=== PATIENT | male | born 1995 | race Caucasian/White ===

== ENCOUNTER 2022-02-04 08:13 | Emergency (ER) | payer OTHER ==
[~2022-02-04] VITALS: Ht 190.5 cm; Wt 99.8 kg
[2022-02-04 08:13] VITALS: BP_SYST 145
--- NOTE | 2022-02-04 08:13 | NUR ---
BROUGHT IN BY [facility] AND PLACED IN BED #8, TRIAGED, REPORT GIVEN TO CINDI
--- NOTE | 2022-02-04 08:16 | NUR ---
PT BIBA AWAKE AND ALERT AOX4, NO SOB OR DISTRESS. PT C/O PAIN FROM LACTERATION TO L WRIST AND R LOWER BACK. PT STATED HE GOT CUT FROM AN AUTOMATIC DOOR AT WORK TODAY AT 0715. THERE IS NO ACTIVE BLEEDING AT THE CURRENT TIME. PT DENIES HEAD TRAUMA AND FALL. PT STATES PAIN 6/10 AT CURRENT TIME.
--- NOTE | 2022-02-04 08:18 | NUR ---
MD DR BROWN AT BEDSIDE
[2022-02-04] MEDS ORDERED: LIDOCAINE 1% 10 MG/ML, 20 ML MDV INJ ONE (09:00)
[2022-02-04] MEDS ORDERED: BACITRACIN 1 GM OINT TP ONE (09:00)
--- NOTE | 2022-02-04 10:00 | NUR ---
MD DR BROWN AT BEDSIDE W/ LACERATION KIT
[2022-02-04 11:19] VITALS: BP_SYST 157
--- NOTE | 2022-02-04 11:21 | NUR ---
Patient given written and verbal discharge instructions and verbalizes understanding. ER MD DR GIRON discussed with patient the results and treatment provided. Patient in stable condition. ID arm band removed. Patient educated on pain management and to follow up with PMD. Pain Scale 4/10. Opportunity for questions provided and answered. Medication side effect fact sheet provided.
== END 2022-02-04 11:21 | disposition home or self-care (01) ==
LOC: SED 08:13
DX: S31.119A Laceration without foreign body of abdominal wall, unspecified quadrant without penetration into peritoneal cavity, initial encounter (principal); S61.512A Laceration without foreign body of left wrist, initial encounter; Z79.899 Other long term (current) drug therapy; W22.8XXA Striking against or struck by other objects, initial encounter; Y93.89 Activity, other specified; Y92.89 Other specified places as the place of occurrence of the external cause; Y99.8 Other external cause status
CPT/HCPCS: 99282; 12004; J2001